=== PATIENT | male | born 1975 | race Caucasian/White ===

== ENCOUNTER 2016-04-28 13:49 | Outpatient (CLI) | payer OTHER | END 2016-04-28 13:50 | disposition home or self-care (01) | DX: G47.33 Obstructive sleep apnea (adult) (pediatric) (principal) ==

== ENCOUNTER 2016-05-02 19:36 | Outpatient (CLI) | payer OTHER | END 2016-05-02 19:37 | disposition home or self-care (01) | DX: G47.33 Obstructive sleep apnea (adult) (pediatric) (principal); G47.61 Periodic limb movement disorder; Z68.32 Body mass index [BMI] 32.0-32.9, adult ==

== ENCOUNTER 2016-05-24 14:03 | Outpatient (CLI) | payer OTHER | END 2016-05-24 14:04 | disposition home or self-care (01) | DX: G47.33 Obstructive sleep apnea (adult) (pediatric) (principal); G47.61 Periodic limb movement disorder ==

== ENCOUNTER 2016-06-21 14:07 | Outpatient (CLI) | payer OTHER | END 2016-06-21 14:08 | disposition home or self-care (01) | DX: G47.33 Obstructive sleep apnea (adult) (pediatric) (principal) ==

== ENCOUNTER 2016-06-24 12:28 | Outpatient (CLI) | payer OTHER | END 2016-06-24 12:29 | disposition home or self-care (01) | DX: M79.672 Pain in left foot (principal) ==

== ENCOUNTER 2016-08-16 13:52 | Outpatient (CLI) | payer OTHER | END 2016-08-16 13:53 | disposition home or self-care (01) | LOC: SC 13:52 | PROVIDERS: ATTEND Nurse Practitioner Family | DX: G47.33 Obstructive sleep apnea (adult) (pediatric) (principal) | CPT/HCPCS: 99212; 99214 ==

== ENCOUNTER 2016-09-27 13:54 | Outpatient (CLI) | payer OTHER | END 2016-09-27 13:55 | disposition home or self-care (01) | LOC: SC 13:54 | PROVIDERS: ATTEND Nurse Practitioner Family | DX: G47.33 Obstructive sleep apnea (adult) (pediatric) (principal); R03.0 Elevated blood-pressure reading, without diagnosis of hypertension | CPT/HCPCS: 99212; 99214 ==

== ENCOUNTER 2016-11-02 15:16 | Outpatient (CLI) | payer OTHER | END 2016-11-02 15:17 | disposition home or self-care (01) | LOC: SC 15:16 | PROVIDERS: ATTEND Nurse Practitioner Family | DX: G47.33 Obstructive sleep apnea (adult) (pediatric) (principal) | CPT/HCPCS: 99212; 99214 ==

== ENCOUNTER 2016-12-01 13:58 | Outpatient (CLI) | payer OTHER | END 2016-12-01 13:59 | disposition home or self-care (01) | LOC: SC 13:58 | PROVIDERS: ATTEND Nurse Practitioner Family | DX: G47.33 Obstructive sleep apnea (adult) (pediatric) (principal); I10 Essential (primary) hypertension | CPT/HCPCS: 99212; 99214 ==

== ENCOUNTER 2017-02-27 14:49 | Outpatient (CLI) | payer OTHER | END 2017-02-27 14:50 | disposition home or self-care (01) | LOC: SC 14:49 | PROVIDERS: ATTEND Nurse Practitioner Family | DX: G47.33 Obstructive sleep apnea (adult) (pediatric) (principal) | CPT/HCPCS: 99212; 99214 ==

== ENCOUNTER 2017-05-25 13:47 | Outpatient (CLI) | payer OTHER | END 2017-05-25 13:48 | disposition home or self-care (01) | LOC: SC 13:47 | PROVIDERS: ATTEND Nurse Practitioner Family | DX: G47.33 Obstructive sleep apnea (adult) (pediatric) (principal) | CPT/HCPCS: 99212; 99214 ==

== ENCOUNTER 2018-08-01 13:55 | Outpatient (CLI) | payer OTHER | END 2018-08-01 13:56 | disposition home or self-care (01) | LOC: SC 13:55 | PROVIDERS: ATTEND Nurse Practitioner Family | DX: G47.33 Obstructive sleep apnea (adult) (pediatric) (principal) | CPT/HCPCS: 99212; 99214 ==

== ENCOUNTER 2018-11-01 13:49 | Outpatient (CLI) | payer OTHER | END 2018-11-01 13:50 | disposition home or self-care (01) | LOC: SC 13:49 | PROVIDERS: ATTEND Nurse Practitioner Family | DX: G47.33 Obstructive sleep apnea (adult) (pediatric) (principal); R03.0 Elevated blood-pressure reading, without diagnosis of hypertension | CPT/HCPCS: 99212; 99214 ==

== ENCOUNTER 2018-12-25 13:47 | Outpatient (CLI) | payer OTHER ==
[2018-12-25 14:52] VITALS: BP 136/100
--- NOTE | 2018-12-25 14:52 | SLEEP CARE CONSULTATION ---
Information from patient questionnaire entered by Sherri Black. I have reviewed and concur with the information entered by Sherri Black. This document represents the service I personally performed and the decisions made by me, Alma Dunne, RN, MSN, WATER PUMPING STATION ENGINEER. History of Present Illness Previous diagnosis: Mild, Obstructive Sleep Apnea-Hypopnea Syndrome AHI: 6.7 Reason for CPAP/BiPAP follow up: other (2 month) Equipment obtained from: [facility] Mask style: Nasal Mask brand: Respironics Last cushion change: 3 weeks ago - he is trying to change every 2 weeks. CPAP Compliance Data - Data Reviewed with Patient Average duration of nightly device use: 6.45 Compliance rate %: 90 (60 days) Current pressure setting (cmH2O): 7 Humidity settin Average residual AHI: 8.0 Average large leak: 1 hr 43 mins Subjective Missed days of use due to: reports: illness Patient concerns: reports: other (mask dislodging most nights with changing position that disrupts sleep. ). denies: aerophagia, mask discomfort, air blowing in eyes, mask leak noise, condensation in mask/hose, nasal congestion, dry mouth, nose, throat, epistaxis Observed to snore while using device: Yes (he has occasionally noted snort when supine) Current pressure setting perceived as: comfortable On therapy, patient: reports: sleeping better, awakening more refreshed, being more awake and alert during the day, more rested overall. denies: drowsiness while driving Initial [place] Sleepiness Scale score: 12 Current [place] Sleepiness Scale score: 2 Allergies and Home Medications Known drug allergies: No Home medication list reviewed: Yes (no change ) Allergy and home medication list: Medication List Medication Name (generic/name brand) Strength & Dosage Prozac 60mg tab daily Clonazepam 1mg tab prn Advil 200mg tab 1 to 4 times daily prn Review of Systems Review of systems same as previous: Yes Physical Exam Blood Pressure: 136/100 (same at begining and end of visit. left arm same at end of visit) Cuff size: long Heart Rate: 92 O2 Saturation: 98 Height: 5 ft 11 in Weight (kg): 235 lb Body Mass Index: 32.8 BMI Classification: Class 1 Impression and Plan 1. Obstructive Sleep Apnea-Hypopnea Syndrome, mild , with good treatment compliance and better apnea control. On CPAP therapy, the patient has better sleep quality and is more rested overall. He has increased his average use of CPAP by almost 2 hours and patient feels more rested with more sleep with CPAP. The residual AHI has reduced from 11.1 to 8.3 from pressure adjustment. I also showed him how mask leaks can contrbiut to higher AHI. Thus further adjustment is needed. I will increase by 7.5cmH20 as he has had difficulty with larger increases in pressure. He is aware to contact me if pressure uncomfortable. Patient's apnea severity and rationale for treatment to reduce apnea, improve sleep quality and reduce cardiovascular and cerebrovascular events was reviewed. I also reviewed the benefit of consistent device use of CPAP for hypertension, depression/anxiety, migraines. 2. Elevated blood pressure, 136/100 at beginning of appointment right arm, no change at end of visit and left arm also same reading when taken end of visit. Patient advised to follow up with PCP this time for further evaluation as discussed at last visit. He was advised of associated health risks of heart att ack and stroke from high blood pressure. I explained how an elevated blood pressure does not always have symptoms. This is why monitoring it is important at home once found elevated in office as I advised at last visit. He states he feels well now but he has a history of migraines. He was advised how headaches can be a symptom of elevated blood pressure as well. He was also advised again to monitor at home and how to seek urgent medical care if 180/110 or above. Measures to reduce blood pressure were discussed such as using his CPAP, regular exercise and losing weight. BMI chart reviewed. He does not agree with BMI goals due to his muscle mass but would like to lose about 20 pounds and encouraged to do so. 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 Patient agreed with plan to follow up with PCP this time. I spent 100% of this 30 minute visit face to face with the patient with greater than 50% of this was spent time counseling the patient and coordination of care.
== END 2018-12-25 13:48 | disposition home or self-care (01) ==
LOC: SC 13:47
PROVIDERS: ATTEND Nurse Practitioner Family
DX: G47.33 Obstructive sleep apnea (adult) (pediatric) (principal); R03.0 Elevated blood-pressure reading, without diagnosis of hypertension
CPT/HCPCS: 99212; 99214

== ENCOUNTER 2019-02-26 13:52 | Outpatient (CLI) | payer OTHER ==
[2019-02-26 15:13] VITALS: BP 130/98
--- NOTE | 2019-02-26 15:13 | SLEEP CARE CONSULTATION ---
Information from patient questionnaire entered by Genevieve Dang. I have reviewed and concur with the information entered by Genevieve Dang. This document represents the service I personally performed and the decisions made by me, Alma Dunne, RN, MSN, SLITTER SCORER. History of Present Illness Previous diagnosis: Mild, Obstructive Sleep Apnea-Hypopnea Syndrome AHI: 6.7 Reason for follow up: other (2 month- pressure change) Equipment type: CPAP Equipment obtained from: [facility] (had to get auth and still difficulty getting supplies despite attempts) Mask style: Nasal (Dreamwear nasal mask) Mask brand: Respironics Backup mask available: No (no longer as having difficulty getting supplies) Last cushion change: a month ago Prior sleep studies: Yes HPI additional information: The pressure increase was comfortable and seems better in controlling apnea by his review of machine data. He is able to sleep easier on his back with new pressure as no longer waking to gasping. It does however cause oral venting a couple of times but that was when he was on his side. There were holes in the hose and patient taped but still did not work. He contacted [facility] but took a couple weeks to get hose so unable to use CPAP during that period. So he avoided sleeping on his back during that time as his apnea is more severe on his back. Patient made appointment with his PCP after his visit here and saw him about 6 weeks ago and started the losartan. He has not yet had his follow up visit and he is not monitoring blood pressure at home. 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 CPAP Compliance Data - Data Reviewed with Patient Average duration of nightly device use: 6h 50m Compliance rate %: 86.7 (30 day report) Current pressure setting (cmH2O): 7.5 Humidity settin Heated hose setting: off Average residual AHI: 6.7 Central apnea: 0.4 Obstructive apnea: 0.5 Hypopnea: 5.8 Average large leak: 44m 41s Subjective Missed days of use due to: reports: other (see HPI for hose problems other few days since hose obtained are due to his migraines. ) Patient concerns: denies: aerophagia, mask discomfort, air blowing in eyes, mask leak noise, condensation in mask/hose, nasal congestion, dry mouth, nose, throat, epistaxis, other Observed to snore while using device: No Current pressure setting perceived as: comfortable On therapy, patient: reports: sleeping better, awakening more refreshed, being more awake and alert during the day, more rested overall. denies: drowsiness while driving Initial [place] Sleepiness Scale score: 12 Current [place] Sleepiness Scale score: 2 Allergies and Home Medications Known drug allergies: No Home medication list reviewed: Yes Allergy and home medication list: Medication Name (generic/name brand) Strength & Dosage Prozac 60mg tab daily Clonazepam 1mg tab prn Advil 200mg tab 1 to 4 times daily prn losartan 25mg daily Review of Systems Review of systems same as previous: No (treated for hypertension) Physical Exam Blood Pressure: 130/98 (130/90 at end of visit. ) Cuff size: long Heart Rate: 73 O2 Saturation: 98 Height: 5 ft 11 in Weight: 236 lb 9.6 oz Body Mass Index: 33.0 BMI Classification: Obesity Class 1 Impression and Plan 1. Obstructive Sleep Apnea-Hypopnea Syndrome, mild , with good treatment compli ance and better apnea control. On CPAP therapy, the patient has better sleep quality and is more rested overall. The new CPAP pressure reduced his residual AHI from 8 to 6.7. He actually liked the pressure better as now able to sleep on his back more comfortably as not waking to gasping. He is also working with his chiropractor for his shoulder pain which seems to increase work of breathing when has pain and he is hopeful this will also help his use of CPAP. He agreed to increase CPAP pressure again slightly to 8cmH20. He will call me if uncomfortable. He has had difficulty in past with higher pressures of CPAP and so will agree only to small adjustments. I explained our goal is to get his residual AHI to below 5 if possible. His supine AHI is 19 when first diagnosed so this is improvement. His headgear adaptor was not obtained so he is still having increased mask leaks from mask dislodging , so I again ordered. I also informed him that if he continues to have difficulty getting supplies, he can transfer to a new DME. I will have my campus wellness coordinator inform him of his choices and a DWO prescription can be made if he chooses. Patient's apnea severity and rationale for treatment to reduce apnea, improve sleep quality and reduce cardiovascular and cerebrovascular events was reviewed. I also reviewed the benefit of consistent device use of CPAP for his hypertension and depre ssion/anxiety. 2. Hypertension, new diagnosis, no follow up yet due to patient busyness. He was advised of importance of regular follow up and regular home monitoring of blood pressure so that his PCP can modify his medications to goal. I again reviewed health risks of untreated hypertension. Patient agreed to contact PCP and follow up soon as well as have monitored by the nurse clinic as planned. * * Change CPAP pressure to 8 cmH2O * Headgear adaptor * Notify me if snoring with mask or feeling that the pressure is too much or too little * Attempt to lose weight * Follow up with PCP as planned to check efficacy of his blood pressure medication * monitor blood pressure at home for PCP to review * Return for follow up in 2 months , or sooner if concerns arise I spent 100% of this 35 minute visit face to face with the patient with greater than 50% of this was spent time counseling the patient and coordination of care.
== END 2019-02-26 13:53 | disposition home or self-care (01) ==
LOC: SC 13:52
PROVIDERS: ATTEND Nurse Practitioner Family
DX: G47.33 Obstructive sleep apnea (adult) (pediatric) (principal); I10 Essential (primary) hypertension
CPT/HCPCS: 99212; 99214

== ENCOUNTER 2019-04-30 13:54 | Outpatient (CLI) | payer OTHER ==
[2019-04-30 14:33] VITALS: BP 144/94
--- NOTE | 2019-04-30 14:33 | SLEEP CARE CONSULTATION ---
Information from patient questionnaire entered by Shreri Black. I have reviewed and concur with the information entered by Sherri Black. This document represents the service I personally performed and the decisions made by me, Alma Dunne, RN, MSN, DAIRY NUTRITION SPECIALIST. History of Present Illness Previous diagnosis: Mild, Obstructive Sleep Apnea-Hypopnea Syndrome AHI: 6.7 Reason for follow up: other (2 month) Equipment type: CPAP Equipment obtained from: [facility] (continues to have difficulty getting some supplies as informed they do not have the hose , headgear not available) Mask style: Nasal Mask brand: Respironics Backup mask available: No (had to use his back up as other broke / keep current as spare when replaced) Last cushion change: last week - changing about every 2 weeks HPI additional information: The pressure was again adjusted slightly for residual AHI. However, the pressure did not get changed as ordered. Patient continue to monitor his blood pressure and has follow up in one week with PCP. He did not get the headgear adaptor. He readjusted his pillow and mask not dislodging as much. CPAP Compliance Data - Data Reviewed with Patient Average duration of nightly device use: 6.45 Compliance rate %: 80 (60 days) Current pressure setting (cmH2O): 7.5 Humidity settin Heated hose settin Average residual AHI: 5.8 Central apnea: 0.3 Obstructive apnea: 0.4 Hypopnea: 5.1 Average large leak: 30 min 31 sec Subjective Missed days of use due to: reports: travel (sleeps non - supine during this time. ) Patient concerns: denies: aerophagia, mask discomfort, air blowing in eyes, mask leak noise, condensation in mask/hose, nasal congestion, dry mouth, nose, throat, epistaxis Observed to snore while using device: No Current pressure setting perceived as: comfortable On therapy, patient: reports: sleeping better, awakening more refreshed, being more awake and alert during the day, more rested overall. denies: drowsiness while driving Initial [place] Sleepiness Scale score: 12 Current [place] Sleepiness Scale score: 2 Allergies and Home Medications Known drug allergies: No Home medication list reviewed: Yes (see list last visit - no changes ) Review of Systems Review of systems same as previous: Yes Physical Exam Blood Pressure: 144/94 Cuff size: long Heart Rate: 85 O2 Saturation: 98 Height: 5 ft 11 in Weight: 235 lb Body Mass Index: 32.8 BMI Classification: Obesity Class 1 Impression and Plan 1. Obstructive Sleep Apnea-Hypopnea Syndrome, mild, with good treatment compliance and better apnea control. On CPAP therapy, the patient has better sleep quality and is more rested overall. He continues to be able to sleep supine on this pressure without gasping. The pressure did not get changed as ordered. However, his mask leaks are better controlled with patient management of pillow that seems to have reduced his residual AHI further. I will again order the pressure change to 8cmH20 to reduce residual AHI further. He is advised as usual to contact this office if uncomfortable. For patient supply concerns. Patient was notified that another DME can be used. I will have my training and development coordinator inform of DME options. A DWO prescription will then be made. Patient advised to contact this office if further supply problems. Patient agreed he is now ready to transfer. In addition, I will check with my [employer] rep to see if the headgear adaptor is still available and add this t o the prescription to reduce mask dislodgment in sleep. Patient's apnea severity and rationale for treatment to reduce apnea, improve sleep quality and reduce cardiovascular and cerebrovascular events was reviewed. I also reviewed the benefit of consistent device use of CPAP for hypertension. * Change CPAP pressure to 8 cmH2O * Transfer to new DME * Headgear adaptor if available * Notify me if snoring with mask or feeling that the pressure is too much or too little * Attempt to lose weight * Call this office if any problems using CPAP * Return for follow up in 2 months , or sooner if concerns arise Time Spent with Patient (minutes): 22 I spent 100% of this visit face to face with the patient with greater than 50% of this was spent time counseling the patient and coordination of care.
== END 2019-04-30 13:55 | disposition home or self-care (01) ==
LOC: SC 13:54
PROVIDERS: ATTEND Nurse Practitioner Family
DX: G47.33 Obstructive sleep apnea (adult) (pediatric) (principal); E66.9 Obesity, unspecified; Z68.32 Body mass index [BMI] 32.0-32.9, adult
CPT/HCPCS: 99212; 99213

== ENCOUNTER 2019-10-24 11:26 | Outpatient (CLI) | payer OTHER ==
[2019-10-24 12:18] VITALS: BP 114/90
--- NOTE | 2019-10-24 12:18 | SLEEP CARE CONSULTATION ---
Information from patient questionnaire entered by Genevieve Dang. I have reviewed and concur with the information entered by Genevieve Dang. This document represents the service I personally performed and the decisions made by me, Alma Dunne, RN, MSN, RISK PROFESSIONAL. History of Present Illness Service Date and Time: 10/24/2019 1126 Previous diagnosis: Mild, Obstructive Sleep Apnea-Hypopnea Syndrome AHI: 6.7 Reason for follow up: other (2 month with pressure change) Equipment type: CPAP Equipment obtained from: [facility] (transfer went well and getting supplies as needed) Mask style: Nasal Mask brand: Respironics (Dreamwear) Backup mask available: No (keep current mask as spare when replaced) Last cushion change: 3 weeks ago Prior sleep studies: Yes Year and Where: 2015 [facility] Type of Sleep Study: Polysomnography CPAP Compliance Data - Data Reviewed with Patient Average duration of nightly device use: 6h 3m Compliance rate %: 78.3 Current pressure setting (cmH2O): 8 Humidity settin Average residual AHI: 5.7 Average large leak: 22m 9s Subjective Patient concerns: reports: mask leak noise, other (mask continues to dislodge in sleep 1-2 times a night / did not get headgear with arms ordered in transfer in April visit. ). denies: aerophagia, mask discomfort, air blowing in eyes, condensation in mask/hose, nasal congestion, dry mouth, nose, throat, epistaxis Observed to snore while using device: Yes (noting snore 1-2 times a night) Current pressure setting perceived as: comfortable Initial [place] Sleepiness Scale score: 12 Current [place] Sleepiness Scale score: 3 Allergies and Home Medications Known drug allergies: No Home medication list reviewed: No ( no changes ) Allergy and home medication list: clonazepam prn losartan 50mg daily Prozac 60mg daily Review of Systems Review of systems same as previous: Yes Physical Exam Blood Pressure: 114/90 Cuff size: long Heart Rate: 74 O2 Saturation: 98 Height: 5 ft 11 in Weight: 230 lb Body Mass Index: 32.1 BMI Classification: Obese Impression and Plan 1. Obstructive Sleep Apnea-Hypopnea Syndrome, mild with supine AHI 19.1, with good treatment compliance and slightly better control of residual AHI. On CPAP therapy, the patient has better sleep quality and is more rested overall. To reduce supine snore and further reduction of residual AHI, I will increase his CPAP pressure to 8.5cmH20. This may assist him to sleep more easily on his back. He is to contact me if the pressure change is uncomfortable. I will again order the Dreamwear nasal mask headgear with arms to reduce disruption of sleep from mask leaks from mask dislodging. His blood pressure is better today. He has not yet been able to obtain a blood pressure monitor and plans to do with his tax return. He has been told he can get his blood pressure checked at [facility] when needed but often office closed. Importance of home montoring of blood pressure again reviewed. Patient's apnea severity and rationale for treatment to reduce apnea, improve sleep quality and reduce cardiovascular and cerebrovascular events was reviewed. I also reviewed the benefit of consistent device use of CPAP for hypertension, depression/anxiety. * Change CPAP pressure to 8.5cmH20 cmH2O * Headgear with arms ordered * Notify me if snoring with mask or feeling that the pressure is too much or too little * Attempt to lose weight * Call this office if any problems using CPAP * Return for follow up in 6 months , or sooner if concerns arise Visit Type: In Office Time Spent with Patient (minutes): 25 Provider Statement: I spent 100% of the Face to Face Visit with the patient with greater than 50% spent counseling the patient and coordination of care.
== END 2019-10-24 11:27 | disposition home or self-care (01) ==
LOC: SC 11:26
PROVIDERS: ATTEND Nurse Practitioner Family
DX: G47.33 Obstructive sleep apnea (adult) (pediatric) (principal); E66.9 Obesity, unspecified; Z68.32 Body mass index [BMI] 32.0-32.9, adult
CPT/HCPCS: 99212; 99214

== ENCOUNTER 2020-11-18 13:00 | Outpatient (CLI) | payer OTHER ==
--- NOTE | 2020-11-18 13:24 | SLEEP CARE CONSULTATION ---
Information from patient questionnaire entered by Sherri Black. I have reviewed and concur with the information entered by Sherri Black. This document represents the service I personally performed and the decisions made by , Cathie Del Cid ARNP. History of Present Illness Service Date and Time: 11/18/2020 1300 Previous diagnosis: Mild, Obstructive Sleep Apnea-Hypopnea Syndrome AHI: 6.7 (in 2015) Reason for follow up: annual (last seen 10/2019) Equipment type: CPAP Equipment obtained from: [facility] (getting supplies as needed) Mask style: Nasal Backup mask available: Yes (old mask) Last cushion change: 2 weeks Prior sleep studies: Yes Year and Where: 2016 - [facility] Type of Sleep Study: Polysomnography HPI additional information: EJ HARDING was diagnosed to have mild, AHI 6.7, obstructive sleep apnea- hypopnea syndrome and returned today for CPAP therapy annual follow-up. CPAP Compliance Data - Data Reviewed with Patient Average duration of nightly device use: 6 hr 4 min Compliance rate %: 73.9 (180 days) Current pressure setting (cmH2O): 8.5 Humidity settin Heated hose settin Average residual AHI: 7.1 Average large leak: 2 min 22 sec Subjective Missed days of use due to: reports: illness, travel Patient concerns: denies: aerophagia, mask discomfort, air blowing in eyes, mask leak noise, condensation in mask/hose, nasal congestion, dry mouth, nose, throat, epistaxis, other Observed to snore while using device: No Current pressure setting perceived as: comfortable On therapy, patient: reports: sleeping better, awakening more refreshed, being more awake and alert during the day, more rested overall. denies: drowsiness while driving Initial [place] Sleepiness Scale score: 12 (in 2016) Current [place] Sleepiness Scale score: 4 Allergies and Home Medications Home medication list reviewed: Yes (no changes) Review of Systems Review of systems same as previous: Yes (no changes) Physical Exam Heart Rate: 90 O2 Saturation: 98 Height: 5 ft 11 in Weight: 227 lb Body Mass Index: 31.6 BMI Classification: Obese Impression and Plan 1. Obstructive Sleep Apnea-Hypopnea Syndrome, mild, with good treatment compliance and fair apnea control with elevation of residual AHI. On CPAP therapy, the patient has better sleep quality and is more rested overall. Patient has some mild elevation of his AHI but requests to keep pressure at current setting of 8.5 cmH2O. He does have a Dreamstation device. I discussed with patient that [employer] has a recall on several devices like the patients machine. Patient was encouraged to register their device online with [employer] for the recall to see if their device is affected. If their device is affected they should start a claim. Patient denies any black particles seen in machine or hoses, any unusual odors coming from device. Patient has not experienced any physical symptoms such as upper airway irritation, headache, skin or eye irritation, asthma, nausea/vomiting, difficulty breathing or chest pain. Patient informed that they may use an inline CPAP filter that they can obtain online to reduce chance of any particles being inhaled or ingested. We discussed thoroughly the health risks of not using the CPAP versus continuing use with the filter in place. If patient is not able to sleep due to waking up choking, gasping for air or other respiratory distress that they may decide to continue using it until it is either replaced or repaired. Since the patients current machine is at least 5 years old the patient has opted to try to update their device with a device that is not on the recall. He is eligible in January for a new device. Patient voiced understanding and agreement with plan. I will follow up with him one month after he obtains his new device. Patient's apnea severity and rationale for treatment to reduce apnea, improve sleep quality and reduce cardiovascular and cerebrovascular events was reviewed. Patient has a history of hypertension. Patient was encouraged to try to lose weight. * Continue auto CPAP pressure at 8.5 cmH2O * Update device * Notify me if snoring with mask or feeling that the pressure is too much or too little * Attempt to lose weight * Call this office if any problems using CPAP * Return for follow up one month after obtaining new device, or sooner if concerns arise Counseling Topics: Spare mask, Weight loss health impact Visit Type: In Office Time Spent with Patient (minutes): 20 Provider Statement: I spent 100% of the Face to Face Visit with the patient with greater than 50% spent counseling the patient and coordination of care.
== END 2020-11-18 13:01 | disposition home or self-care (01) ==
LOC: SC 13:00
PROVIDERS: ATTEND Nurse Practitioner Family
DX: G47.33 Obstructive sleep apnea (adult) (pediatric) (principal); E66.9 Obesity, unspecified; Z68.31 Body mass index [BMI] 31.0-31.9, adult
CPT/HCPCS: 99212; 99213

== ENCOUNTER 2022-05-26 12:58 | Outpatient (CLI) | payer OTHER ==
--- NOTE | 2022-05-26 13:19 | SLEEP CARE CONSULTATION ---
Information from patient questionnaire entered by Aparna Correia. I have reviewed and concur with the information entered by Aparna Correia. This document represents the service I personally performed and the decisions made by , Cathie Del Cid ARNP. History of Present Illness Service Date and Time: 05/26/2022 1258 Previous diagnosis: Mild, Obstructive Sleep Apnea-Hypopnea Syndrome AHI: 6.7 (in 2015) Reason for follow up: annual (LAST SEEN ) Equipment type: CPAP (Lynn Dreamstation) Equipment obtained from: [employer] (getting supplies as needed) Mask style: Nasal Backup mask available: Yes (other mask) Last cushion change: 2 weeks Prior sleep studies: Yes Year and Where: 2015 - [facility] Type of Sleep Study: Polysomnography HPI additional information: EJ HARDING was diagnosed to have mild, AHI 6.7, obstructive sleep apnea- hypopnea syndrome and returned today for CPAP therapy annual follow-up. Sleep Study - Results Type of Sleep Study: Polysomnography Prior sleep studies: Yes Year and Where: 2015 - [facility] CPAP Compliance Data - Data Reviewed with Patient Average duration of nightly device use: 5 hours 32 minutes Compliance rate %: 69.4 (10-13-21 to 04-10-22; 170/180 days used) Current pressure setting (cmH2O): 8.5 Average residual AHI: 4.3 Central apnea: 0.2 Obstructive apnea: 0.5 Subjective Missed days of use due to: reports: travel, other (migraines) Patient concerns: denies: aerophagia, mask discomfort, air blowing in eyes, mask leak noise, condensation in mask/hose, nasal congestion, dry mouth, nose, throat, epistaxis Observed to snore while using device: No Current pressure setting perceived as: too low On therapy, patient: reports: sleeping better, awakening more refreshed, being more awake and alert during the day, more rested overall. denies: drowsiness while driving Initial [place] Sleepiness Scale score: 12 (in 2015) Current [place] Sleepiness Scale score: 3 (05/26/22) Allergies and Home Medications Drug allergies reviewed: Yes (NKDA) Home medication list reviewed: Yes (no changes) Review of Systems Review of systems same as previous: Yes (no changes) Physical Exam Vital signs obtained and entered by: APARNA Draper MA Blood Pressure: 144/90 (left arm) Cuff size: regular Heart Rate: 92 O2 Saturation: 97 Height: 5 ft 11 in Weight: 233 lb Body Mass Index: 32.5 BMI Classification: Obese Impression and Plan 1. Obstructive Sleep Apnea-Hypopnea Syndrome, mild, with good treatment compliance and good apnea control. On CPAP therapy, the patient has better sleep quality and is more rested overall. Patient has significant improvement of their sleep apnea and is satisfied with current CPAP therapy. Patient does feel the pressure is a little too low so I will adjust the pressure to 9.0 cm H2O for patient comfort. He was instructed to let me know if the pressure change was uncomfortable for further adjustment as needed. Patient denies problems with oral dryness, nasal congestion, epistaxis, skin irritation or aerophagia. Patient's apnea severity and rationale for treatment to reduce apnea, improve sleep quality and reduce cardiovascular and cerebrovascular events was reviewed. I also reviewed the benefit of consistent device use of CPAP for hypertension. 2. Obesity, unspecified. Currently patients BMI is 32.5. Obesity increases the risk of apnea, CPAP pressure requirements and overall health risks especially cardiovascular and diabetes. Thus patient is advised to lose weight. * Change auto CPAP pressure to 9.0 cmH2O * Update supplies * Notify me if snoring with mask or feeling that the pressure is too much or too little * Attempt to lose weight * Call this office if any problems using CPAP * Return for follow up in 1 year, or sooner if concerns arise Counseling Topics: Spare mask, Weight loss health impact Visit Type: In Office Time Spent with Patient (minutes): 12 Provider Statement: I spent 100% of the Face to Face Visit with the patient with greater than 50% spent counseling the patient and coordination of care.
[2022-05-26 13:20] VITALS: BP 144/90
== END 2022-05-26 12:59 | disposition home or self-care (01) ==
LOC: SC 12:58
PROVIDERS: ATTEND Nurse Practitioner Family
DX: G47.33 Obstructive sleep apnea (adult) (pediatric) (principal); E66.9 Obesity, unspecified; Z68.32 Body mass index [BMI] 32.0-32.9, adult
CPT/HCPCS: 99212